=== PATIENT | female | born 1950 | race Caucasian/White ===

== ENCOUNTER 2016-06-20 14:35 | Emergency (ER) | payer OTHER, MEDICARE ==
[2016-06-20 14:55] VITALS: O2SAT 94
[2016-06-20] MEDS ORDERED: HYDROCODONE/APAP 5/325 TAB PO ONE (15:11)
--- NOTE | 2016-06-20 15:15 | EDPHY ---
H & P Time Seen by Provider: 06/20/16 15:02 HPI/ROS: CHIEF COMPLAINT: Right shoulder pain HISTORY OF PRESENT ILLNESS: Patient was going down the steps of her deck is sideways because she was reaching for a rug when she tripped and landed with her right shoulder in a planter. Her forehead at the dirt, she did not lose consciousness. She presents with right shoulder and upper arm pain which is moderate at rest and severe with movement. Does not radiate. Started just after the fall. No other injuries. REVIEW OF SYSTEMS: Eye: no change in vision ENT: no sore throat Cardiac: no chest pain or syncope Pulmonary: no cough or SOB Abdomen: no vomiting, diarrhea, abdominal pain Musculoskeletal: no back pain, minimal neck soreness Skin: no rash Neuro: very mild diffuse headache, no weakness or numbness extremities Constitutional: no fever : no urinary symptoms A comprehensive 10 point review of systems is otherwise negative aside from elements mentioned in the history of present illness. PAST MEDICAL HISTORY: Includes diabetes high cholesterol hypertension depression and GERD. Social history: General Appearance: Alert and conversant, cooperative. Eyes: No scleral icterus. ENT, Mouth: Normal mucous membranes. No scalp hematoma or laceration. No hemotympanum and no bruising on the mastoid. Respiratory: Normal respiratory effort, breath sounds equal, lungs are clear to auscultation. Cardiovascular: Regular rate and rhythm. Gastrointestinal: Abdomen is soft and non tender. Nontender over the liver. Neurological: Alert and oriented x3. Normally conversant. Face symmetric, normal movement and sensation in all extremities. Skin: Warm and dry, no rashes. Musculoskeletal: No cervical thoracic or lumbar midline spinal tenderness. Patient has no right clavicular tenderness. She has right upper humerus pain tenderness and swelling. Her right elbow and forearm wrist and hand have normal range of motion and are not tender. Normal motor sensory and vascular in the right hand. Psychiatric: Not agitated. Emergency Department course/MDM: Cervical spine cleared clinically. Oral Vicodin for right arm. X-rays ordered. Not anticoagulated, I think her risk for significant head injury including fracture or intracranial bleed or subdural or epidural is low. 1540: X-rays reviewed with the patient. Right shoulder and humerus x-ray personally interpreted shows minimally displaced humeral head fracture. Smoking Status: Never smoked Constitutional: Initial Vital Signs Temperature (C) 37.2 C 06/20/16 14:45 Heart Rate 74 06/20/16 14:45 Respiratory Rate 18 06/20/16 14:45 Blood Pressure 122/60 H 06/20/16 14:45 O2 Sat (%) 94 06/20/16 14:45 O2 Delivery Mode Room Air Allergies/Adverse Reactions: droperidol Allergy (Intermediate, Verified 06/20/16 14:50) hallucinate tetracycline Allergy (Intermediate, Verified 06/20/16 14:50) Hives Home Medications: Medication Instructions Recorded Aspirin [Aspirin 81mg (*)] 81 mg PO DAILY 06/20/16 FLUoxetine [PROzac] 20 mg PO 06/20/16 Hydrocodone/APAP 5/325 [[place] 1 - 2 tab PO Q4-6PRN PRN #19 tab 06/20/16 5/325] Lisinopril [Zestril 40 mg (*)] 40 mg PO 06/20/16 Metformin HCl [Metformin 1000 mg] 1,000 mg PO 06/20/16 Omeprazole 40 mg PO DAILY 06/20/16 Pregabalin [Lyrica 50mg (*)] 50 mg PO BID 06/20/16 SIMVASTATIN 10 mg PO 06/20/16 Zolpidem Tartrate [Ambien 5MG (*)] 5 mg PO HS 06/20/16 Medical Decision Making - Data Points Medications Given: Discontinued Medications Hydrocodone Bitart/Acetaminophen ([place] 5/325) 1 tab PO EDNOW ONE Stop: 06/20/16 15:12 Last Admin: 06/20/16 15:25 Dose: 1 tab Departure - Departure Disposition: Home, Routine, Self-Care Clinical Impression: Fracture of humeral head, right, closed Qualifiers: Encounter type: initial encounter Qualified Code(s): S42.291A - Other displaced fracture of upper end of right humerus, initial encounter for closed fracture Condition: Good Instructions: Arm Fracture in Adults (ED), Head Injury (ED) Additional Instructions: Sling with limited use of right arm until approved by follow up orthopedist. Referrals: Beth Arreguin MD [Primary Care Provider] - As per Instructions Radha Dinero MD [Medical Doctor] - As per Instructions (this week; or tho followup) Prescriptions: Hydrocodone/APAP 5/325 [[place] 5/325] 1 - 2 tab PO Q4-6PRN PRN #19 tab PRN Reason: For Pain
[2016-06-20 16:11] VITALS: BP 120/63; PULSE 73; RESP 15; TEMP 98.8
== END 2016-06-20 16:12 | disposition home or self-care (01) ==
DX: S42.291A Other displaced fracture of upper end of right humerus, initial encounter for closed fracture (principal); E11.9 Type 2 diabetes mellitus without complications; I10 Essential (primary) hypertension; Z79.82 Long term (current) use of aspirin; Z79.84 Long term (current) use of oral hypoglycemic drugs; W18.49XA Other slipping, tripping and stumbling without falling, initial encounter
CPT/HCPCS: 73030; 73060; 99283; A4565

== ENCOUNTER → 2017-07-28 | Outpatient (CLI) | payer OTHER, MEDICARE | LOC: FIMAGING 13:52 | PROVIDERS: ATTEND Family Medicine | DX: Z12.31 Encounter for screening mammogram for malignant neoplasm of breast (principal) ==

== ENCOUNTER → 2017-08-19 | Outpatient (CLI) | payer OTHER, MEDICARE | LOC: FIMAGING 10:23 | PROVIDERS: ATTEND Family Medicine | DX: Z13.820 Encounter for screening for osteoporosis (principal); M85.89 Other specified disorders of bone density and structure, multiple sites; R73.9 Hyperglycemia, unspecified; Z78.0 Asymptomatic menopausal state; Z87.81 Personal history of (healed) traumatic fracture; Z79.899 Other long term (current) drug therapy ==

== ENCOUNTER 2017-09-04 19:56 | Inpatient (IN) | payer OTHER, MEDICARE ==
--- NOTE | 2017-09-04 20:03 | EDPHY ---
H & P Time Seen by Provider: 09/04/17 20:00 HPI/ROS: CHIEF COMPLAINT: Left hip pain HISTORY OF PRESENT ILLNESS: 67-year-old female arrives via ambulance complaining of left buttock and left hip pain after mechanical fall. She has been unable to bear weight. She describes sitting in her recliner, got up, her foot caught in the foot component of her recliner she fell onto her left side. This was a mechanical non syncopal episode. No head injury. No alcohol or drug use. No chest pain or trauma. Last oral intake 5:30 p.m. today REVIEW OF SYSTEMS: A ten point review of systems was performed and is negative with the exception of the items mentioned in the HPI PAST MEDICAL/SURGICAL HISTORY: Left knee arthroplasty. no anticoagulant use, [id number] diabetes. Meniere's disease. SOCIAL HISTORY: denies alcohol use at time of incident PHYSICAL EXAM 1) GENERAL: Well-developed, well-nourished, alert and oriented. Appears uncomfortable Answering questions appropriately. 2) HEAD: Normocephalic, atraumatic 3) HEENT: Pupils equal, round, reactive to light bilaterally. Negative Horners. Nasopharynx, oropharynx, clear. No deformity or angulation of nose. No septal hematoma. No rhinorrhea. No oral trauma. Ears bilaterally with normal tympanic membranes. No hemotympanum. No fluid or blood in the external auditory canal. No raccoon eyes. No Carmona sign. Teeth are normally aligned with no gross malocclusion, TMJ bilaterally nontender, facial bones nontender including the zygomatic arch, maxilla mandible. 4) NECK: No cervical collar is on. Posterior cervical spine is nontender, no stepoff, no effusion. Full range of motion which does not elicit any midline cervical spine pain, no posterior midline tenderness, no step-off. 5) LUNGS: Clear to auscultation bilaterally, no wheezes, no rhonchi, no retractions. No obvious signs of trauma. No chest wall pain. No flaring, no grunting. Moving symmetrically. No crepitus. 6) HEART: [Regular rate and rhythm, 7) ABDOMEN: No guarding, no rebound, no focal tenderness, no peritoneal signs, no signs of trauma, no ecchymosis 8) MUSCULOSKELETAL: Left lower extremity: No shortening no malrotation. Tender to palpation greater trochanteric region, tender to palpation left buttock. Intact skin. Soft compartments. DP PT pulses present and brisk. Remainder of the femur and remainder of left lower extremity are nontender. Moving all extremities, no focal areas of tenderness, no obvious trauma. 9) BACK: Patient logrolled while holding inline traction.No midline vertebral tenderness, no fluctuance, no step-off, no obvious trauma, no visual or palpable abnormality. 10) SKIN: No laceration. No abrasion DIFFERENTIAL DIAGNOSIS: In no particular order including but not limited to fracture, sprain, strain, dislocation - Medical/Surgical History Hx Diabetes: Yes Other PMH: diabetic type 2. cho;estero;. HTN. depression. GERD - Social History Smoking Status: Never smoked Constitutional: Initial Vital Signs Temperature (C) 36.6 C 09/04/17 20:05 Heart Rate 86 09/04/17 20:05 Respiratory Rate 18 09/04/17 20:05 Blood Pressure 83/49 L 09/04/17 20:05 O2 Sat (%) 94 09/04/17 20:05 O2 Delivery Mode Room Air Allergies/Adverse Reactions: droperidol Allergy (Intermediate, Verified 09/04/17 20:05) hallucinate tetracycline Allergy (Intermediate, Verified 09/04/17 20:05) Hives Home Medications: Medication Instructions Recorded Hydrocodone/APAP 5/325 [[place] 1 - 2 tab PO Q4-6PRN PRN #19 tab 06/20/16 5/325] Alendronate Sodium [Fosamax 70 MG 70 mg PO SA@0700 09/04/17 (*)] Cholecalciferol Vit D3 [Vitamin D3 1,000 units PO DAILY 09/04/17 (*)] DULoxetine [Cymbalta 30 MG (*)] 30 mg PO BID 09/04/17 Hydroxyurea [Hydrea 500 mg (*)] 500 mg PO MOTH@,09/04/17 Hydroxyurea [Hydrea 500 mg (*)] 500 mg PO SUTUWEFRSA@,,09/04/17 Lisinopril [Zestril 5 mg (*)] 5 mg PO DAILY 09/04/17 Metformin HCl [Metformin 1000 mg] 1,000 mg PO BIDMEAL 09/04/17 Pantoprazole Sodium [Protonix 40mg 40 mg PO DAILY 09/04/17 (*)] Pregabalin [Lyrica 150mg (*)] 150 mg PO BID 09/04/17 Quetiapine Fumarate 25 mg PO HS 09/04/17 Simvastatin [Zocor] 20 mg PO 1800 09/04/17 Triamterene/Hctz 75/50 [Maxzide 0.5 tab PO DAILY 09/04/17 75-50 mg Tab (*)] Vitamin B Complex [Vitamin B 1 each PO DAILY 09/04/17 Complex (OTC)] Medical Decision Making - Diagnostics Imaging Results: Imaging Impressions Hip X-Ray 09/04/17 19:58 Impression: Minimally-displaced and angulated intertrochanteric fracture left hip. Chest X-Ray 09/04/17 20:27 IMPRESSION: No evidence for acute cardiopulmonary abnormality. ED Course/Re-evaluation: 8:20 p.m.: Dr. Brian Rodas in the ER to see patient for the patient's left femoral neck fracture. No other injury. This was a mechanical incident. He will plan on surgical intervention tomorrow, admit to hospitalist. Patient last ate at 5:30 p.m. Tonight. I saw this patient independently based on established practice protocols. Care of patient under supervision of secondary supervising physician Dr Tonny Carmona with whom I discussed case. 9:01 p.m.: Consult with hospitalist Dr. Correa who will admit patient - Data Points Laboratory Results: Laboratory Results 09/04/17 20:45 09/04/17 20:45 09/04/17 09/04/17 09/04/17 20:45 20:45 20:45 WBC 12.53 10^3/uL H 10^3/uL (3.80-9.50) RBC 3.83 10^6/uL L 10^6/uL (4.18-5.33) Hgb 14.4 g/dL g/dL (12.6-16.3) Hct 42.8 % % (38.0-47.0) MCV 111.7 fL H fL (81.5-99.8) MCH 37.6 pg H pg (27.9-34.1) MCHC 33.6 g/dL g/dL (32.4-36.7) RDW 15.8 % H % (11.5-15.2) Plt Count 627 10^3/uL H 10^3/uL (150-400) MPV 10.0 fL fL (8.7-11.7) Neut % (Auto) 59.6 % % (39.3-74.2) Lymph % (Auto) 20.3 % % (15.0-45.0) [place] % (Auto) 17.2 % H % (4.5-13.0) Eos % (Auto) 1.4 % % (0.6-7.6) Baso % (Auto) 0.6 % % (0.3-1.7) Nucleat RBC Rel Count 0.0 % % (0.0-0.2) Absolute Neuts (auto) 7.47 10^3/uL H 10^3/uL (1.70-6.50) Absolute Lymphs (auto) 2.54 10^3/uL 10^3/uL (1.00-3.00) Absolute Monos (auto) 2.16 10^3/uL H 10^3/uL (0.30-0.80) Absolute Eos (auto) 0.18 10^3/uL 10^3/uL (0.03-0.40) Absolute Basos (auto) 0.08 10^3/uL 10^3/uL (0.02-0.10) Absolute Nucleated RBC 0.00 10^3/uL 10^3/uL (0-0.01) Immature Gran % 0.9 % % (0.0-1.1) Immature Gran # 0.11 10^3/uL H 10^3/uL (0.00-0.10) RBC/WBC/PLT Morphology TNP Platelet Estimate INCREASED H (ADEQ) Oval Macrocytes 1+ H Smear Review By Pending PT 12.8 SEC SEC (12.0-15.0) INR 0.94 (0.83-1.16) APTT 28.3 SEC SEC (23.0-38.0) Sodium 137 mEq/L mEq/L (135-145) Potassium 4.8 mEq/L mEq/L (3.3-5.0) Chloride 103 mEq/L mEq/L (97-110) Carbon Dioxide 27 mEq/l mEq/l (22-31) Anion Gap 7 mEq/L L mEq/L (8-16) BUN 21 mg/dL mg/dL (7-23) Creatinine 0.6 mg/dL mg/dL (0.6-1.0) Estimated GFR > 60 Glucose 129 mg/dL H mg/dL (70-100) Calcium 9.4 mg/dL mg/dL (8.5-10.4) Specimen Hemolysis 118 Medications Given: Hydromorphone HCl (Dilaudid) 2 mg PO Q4HRS PRN PRN Reason: Pain, Severe Able to Take PO Stop: 09/14/17 22:10 Last Admin: 09/04/17 23:39 Dose: 2 mg Quetiapine Fumarate (Seroquel) 25 mg PO HS PRN PRN Reason: Insomnia Stop: 03/04/18 20:59 Last Admin: 09/05/17 01:12 Dose: 25 mg Discontinued Medications Fentanyl (Sublimaze) 100 mcg IVP EDNOW ONE Stop: 09/04/17 20:27 Last Admin: 09/04/17 20:28 Dose: 100 mcg Fentanyl (Sublimaze) 100 mcg IVP EDNOW ONE Stop: 09/04/17 20:27 Last Admin: 09/04/17 20:32 Dose: Not Given Hydromorphone HCl (Dilaudid) 1 mg IVP Q4HRS PRN PRN Reason: Pain, Severe Unable to Take PO Stop: 09/14/17 21:51 Last Admin: 09/04/17 21:54 Dose: 1 mg Sodium Chloride (Ns) 1,000 mls @ 0 mls/hr IV ONCE ONE PRN Reason: Wide Open Stop: 09/04/17 20:27 Last Admin: 09/04/17 20:45 Dose: 1,000 mls Departure - Departure [facility] Clinical Impression: Fracture of femoral neck, left Qualifiers: Encounter type: initial encounter Fracture type: closed Qualified Code(s): S72.002A - Fracture of unspecified part of neck of left femur, initial encounter for closed fracture Condition: Fair
[2017-09-04] MEDS ORDERED: fentaNYL 100 MCG/2 ML INJ IVP ONE ×2 (20:26)
[2017-09-04] MEDS ORDERED: NS 1,000 ML IV ONE (20:26)
--- NOTE | 2017-09-04 20:59 | CPEKG ---
Heart Rate: 66 RR Interval: 909 P-R Interval: 140 QRSD Interval: 92 QT Interval: 420 QTC Interval: 441 P [place]: 67 QRS [place]: -74 T Wave [place]: 68 EKG Severity - ABNORMAL ECG - EKG Impression: SINUS RHYTHM EKG Impression: LEFT ANTERIOR FASCICULAR BLOCK EKG Impression: BORDERLINE T ABNORMALITIES, ANT-LAT LEADS Electronically Signed By: Tonny Carmona 04-Sep-2017 21:00:44
[2017-09-04 21:06] LABS: PLATELET COUNT 627 10^3/uL (150-400)
[2017-09-04 21:14] LABS: INR 0.94 (0.83-1.16); PROTIME(PATIENT) 12.8 SEC (12.0-15.0)
[2017-09-04] MEDS ORDERED: HYDROmorphONE/DILAUDID 1 MG/ML INJ IVP PRN (21:52)
[2017-09-04] MEDS ORDERED: HYDROmorphONE/DILAUDID 1 MG/ML INJ ONE (21:53)
[2017-09-04] MEDS ORDERED: ONDANSETRON DISINTEGRATING 4 MG TAB PO PRN (22:11)
[2017-09-04] MEDS ORDERED: ONDANSETRON 4 MG/2 ML VIAL IVP PRN (22:11)
[2017-09-04] MEDS ORDERED: D50W 25 GM/50 ML SYR IVP PRN (22:15)
[2017-09-04] MEDS ORDERED: QUEtiapine FUMARATE 25 MG TAB PO PRN (23:14)
--- NOTE | 2017-09-04 23:35 | PDGENHP ---
History and Physical - Chief Complaint Fall - History of Present Illness 67 yo F w/ hx of osteoporosis, unsteady gait, and multiple prior falls and fractures presents after a fall. The patient tells me she tripped on a new recliner and fell down. Immediately after the fall she experienced L hip pain; she denies LOC. Once in the ED XR revealed L hip fracture. She is particularly upset as she has recently finished rehabilitation for a recent patellar fracture requiring surgery. Of note, she recently started Fosamax for treatment of osteoporosis. At the time of my evaluation patient is comfortable but in pain with movement. She denies any additional symptoms. Case discussed with Dr. Correa, previous records reviewed. History Information - Allergies/Home Medication List Allergies/Adverse Reactions: droperidol Allergy (Intermediate, Verified 09/04/17 20:05) hallucinate tetracycline Allergy (Intermediate, Verified 09/04/17 20:05) Hives Home Medications: Alendronate Sodium [Fosamax 70 MG (*)] 70 mg PO SA@0700 09/04/17 [Last Taken Unknown] Cholecalciferol Vit D3 [Vitamin D3 (*)] 1,000 units PO DAILY 09/04/17 [Last Taken Unknown] DULoxetine [Cymbalta 30 MG (*)] 30 mg PO BID 09/04/17 [Last Taken 09/04/17] Hydroxyurea [Hydrea 500 mg (*)] 500 mg PO MOTH@09/04/17 [Last Taken Unknown] Hydroxyurea [Hydrea 500 mg (*)] 500 mg PO SUTUWEFRSA@,09/04/17 [Last Taken Unknown] Lisinopril [Zestril 5 mg (*)] 5 mg PO DAILY 09/04/17 [Last Taken Unknown] Metformin HCl [Metformin 1000 mg] 1,000 mg PO BIDMEAL 09/04/17 [Last Taken Unknown] Pantoprazole Sodium [Protonix 40mg (*)] 40 mg PO DAILY 09/04/17 [Last Taken Unknown] Pregabalin [Lyrica 150mg (*)] 150 mg PO BID 09/04/17 [Last Taken Unknown] Quetiapine Fumarate 25 mg PO HS 09/04/17 [Last Taken 09/03/17] Simvastatin [Zocor] 20 mg PO 1800 09/04/17 [Last Taken Unknown] Triamterene/Hctz 75/50 [Maxzide 75-50 mg Tab (*)] 0.5 tab PO DAILY 09/04/17 [ Last Taken Unknown] Vitamin B Complex [Vitamin B Complex (OTC)] 1 each PO DAILY 09/04/17 [Last Taken Unknown] I have personally reviewed and updated: family history, medical history - Past Medical History diabetes type 2, hypertension, osteoporosis - Surgical History Additional surgical history: Vestibular surgery. Patellar surgery. Shoulder surgery - Family History Additional family history: Denies family hx of fractures or osteoporosis - Social History Smoking Status: Never smoked Review of Systems Review of Systems: ROS: 10pt was reviewed & negative except for what was stated in HPI & below Physical Exam Physical Exam: Temp Pulse Resp BP Pulse Ox 36.6 C 87 18 148/78 H 94 09/04/17 20:05 09/04/17 22:22 09/04/17 22:22 09/04/17 22:22 09/04/17 22:22 O2 (L/minute) 4 Constitutional: appears nourished, uncomfortable Eyes: PERRL, EOMI Ears, Nose, Mouth, Throat: moist mucous membranes, no oral mucosal ulcers Cardiovascular: regular rate and rhythym, no murmur, rub, or gallop Respiratory: no respiratory distress, clear to auscultation Gastrointestinal: normoactive bowel sounds, soft, non-tender abdomen Skin: warm, normal color Musculoskeletal: other (Pain w/ L hip motion), No no joint effusions Neurologic: AAOx3, CN II-XII Intact Psychiatric: interacting appropriately, not anxious Lab Data & Imaging Review 09/04/17 20:45 09/04/17 20:45 WBC 12.53 10^3/uL (3.80-9.50) H 09/04/17 20:45 RBC 3.83 10^6/uL (4.18-5.33) L 09/04/17 20:45 Hgb 14.4 g/dL (12.6-16.3) 09/04/17 20:45 Hct 42.8 % (38.0-47.0) 09/04/17 20:45 MCV 111.7 fL (81.5-99.8) H 09/04/17 20:45 MCH 37.6 pg (27.9-34.1) H 09/04/17 20:45 MCHC 33.6 g/dL (32.4-36.7) 09/04/17 20:45 RDW 15.8 % (11.5-15.2) H 09/04/17 20:45 Plt Count 627 10^3/uL (150-400) H 09/04/17 20:45 MPV 10.0 fL (8.7-11.7) 09/04/17 20:45 Neut % (Auto) 59.6 % (39.3-74.2) 09/04/17 20:45 Lymph % (Auto) 20.3 % (15.0-45.0) 09/04/17 20:45 [place] % (Auto) 17.2 % (4.5-13.0) H 09/04/17 20:45 Eos % (Auto) 1.4 % (0.6-7.6) 09/04/17 20:45 Baso % (Auto) 0.6 % (0.3-1.7) 09/04/17 20:45 Nucleat RBC Rel Count 0.0 % (0.0-0.2) 09/04/17 20:45 Absolute Neuts (auto) 7.47 10^3/uL (1.70-6.50) H 09/04/17 20:45 Absolute Lymphs (auto) 2.54 10^3/uL (1.00-3.00) 09/04/17 20:45 Absolute Monos (auto) 2.16 10^3/uL (0.30-0.80) H 09/04/17 20:45 Absolute Eos (auto) 0.18 10^3/uL (0.03-0.40) 09/04/17 20:45 Absolute Basos (auto) 0.08 10^3/uL (0.02-0.10) 09/04/17 20:45 Absolute Nucleated RBC 0.00 10^3/uL (0-0.01) 09/04/17 20:45 Immature Gran % 0.9 % (0.0-1.1) 09/04/17 20:45 Immature Gran # 0.11 10^3/uL (0.00-0.10) H 09/04/17 20:45 RBC/WBC/PLT Morphology TNP 09/04/17 20:45 Platelet Estimate INCREASED (ADEQ) H 09/04/17 20:45 Oval Macrocytes 1+ H 09/04/17 20:45 PT 12.8 SEC (12.0-15.0) 09/04/17 20:45 INR 0.94 (0.83-1.16) 09/04/17 20:45 APTT 28.3 SEC (23.0-38.0) 09/04/17 20:45 Sodium 137 mEq/L (135-145) 09/04/17 20:45 Potassium 4.8 mEq/L (3.3-5.0) 09/04/17 20:45 Chloride 103 mEq/L (97-110) 09/04/17 20:45 Carbon Dioxide 27 mEq/l (22-31) 09/04/17 20:45 Anion Gap 7 mEq/L (8-16) L 09/04/17 20:45 BUN 21 mg/dL (7-23) 09/04/17 20:45 Creatinine 0.6 mg/dL (0.6-1.0) 09/04/17 20:45 Estimated GFR > 60 09/04/17 20:45 Glucose 129 mg/dL (70-100) H 09/04/17 20:45 Calcium 9.4 mg/dL (8.5-10.4) 09/04/17 20:45 Specimen Hemolysis 118 09/04/17 20:45 Imaging Review: Imaging Impressions Hip X-Ray 09/04/17 19:58 Impression: Minimally-displaced and angulated intertrochanteric fracture left hip. Chest X-Ray 09/04/17 20:27 IMPRESSION: No evidence for acute cardiopulmonary abnormality. Visualized and Interpreted Chest x-ray results: Yes Chest X-Ray results: no infiltrate Assessment & Plan Assessment: 67 yo F w/ hx T2DM, HTN, osteoporosis, and multiple falls p/w L hip fracture after a fall. Plan: 1. L hip fracture - Minimally-displaced and angulated intertrochanteric fracture left hip; suffered from mechanical fall. This qualifies as pathologic fracture noting it occurred from standing height. - Orthopedic surgery consulted, appreciate assistance - Maintain NPO for surgical correction - Continue bisphosphonate at discharge 2. T2DM - On metformin as outpatient; will manage BG here with SSI. - SSI lispro standard protocol - BG ACHS; D50 IV PRN for hypoglycemia 3. HTN - Restart home meds after surgery as indicated 4. Unsteady gait - Patient tells me she has history of Meniere's disease and she underwent a vestibulectomy for this many years ago. She has suffered multiple falls resulting in serious injuries (shoulder, patella, hip). 5. Insomnia - Seroquel PRN 6. Elevated platelet count - On Hydroxyurea for this. Diet - NPO Code - Full Ppx - SCDs Dispo - Admit under inpatient status noting need for surgical correction, pain control, and therapy evaluation.
[2017-09-04] MEDS: HYDROmorphONE/DILAUDID 2 MG TAB PO PRN (23:39)
[2017-09-05 05:48] LABS: PLATELET COUNT 506 10^3/uL (150-400)
[2017-09-05] MEDS: HYDROmorphONE/DILAUDID 1 MG/ML INJ IVP PRN ×5 (06:52→12:46)
[2017-09-05] MEDS: HYDROmorphONE/DILAUDID 2 MG TAB PO PRN ×2 (08:08→21:23)
[2017-09-05] MEDS: INSULIN LISPRO 100 UNIT/ML SC SCH ×3 (08:09→17:32)
--- NOTE | 2017-09-05 08:59 | PDMN ---
Medical Necessity Medical necessity: est los>2mn for L hip fx r/t mechanical fall; admit for ortho consult and surgical repair; comorbid Meniere's w/unsteady gait, hx multiple falls w/serious injuries, HTN, DM2; per order and H&P 09/04/17
[2017-09-05] MEDS ORDERED: CLINDAMYCIN 900 MG/DEXTROSE/50 ML BAG IV ONE (10:11)
[2017-09-05] MEDS ORDERED: CLINDAMYCIN 900 MG/DEXTROSE 50 ML IV ONE (10:16)
[2017-09-05] MEDS ORDERED: MIDAZOLAM 2 MG/2 ML VIAL IVP ONE (10:26)
--- NOTE | 2017-09-05 10:27 | PDANEPAE ---
ANE History of Present Illness left hip fracture ANE Past Medical History - Pulmonary History Hx Oxygen in Use at Home: No Hx Sleep Apnea: Yes Sleep Apnea Screening Result - Last Documented: Negative - Endocrine History Hx Diabetes: Yes ANE Review of Systems Review of Systems: ANE Patient History - Allergies Allergies/Adverse Reactions: droperidol Allergy (Intermediate, Verified 09/04/17 20:05) hallucinate tetracycline Allergy (Intermediate, Verified 09/04/17 20:05) Hives - Home Medications Home Medications: Alendronate Sodium [Fosamax 70 MG (*)] 70 mg PO SA@0700 09/04/17 [Last Taken Unknown] Cholecalciferol Vit D3 [Vitamin D3 (*)] 1,000 units PO DAILY 09/04/17 [Last Taken Unknown] DULoxetine [Cymbalta 30 MG (*)] 30 mg PO BID 09/04/17 [Last Taken 09/04/17] Hydroxyurea [Hydrea 500 mg (*)] 500 mg PO MOTH@09/04/17 [Last Taken Unknown] Hydroxyurea [Hydrea 500 mg (*)] 500 mg PO SUTUWEFRSA@,,09/04/17 [Last Taken Unknown] Lisinopril [Zestril 5 mg (*)] 5 mg PO DAILY 09/04/17 [Last Taken Unknown] Metformin HCl [Metformin 1000 mg] 1,000 mg PO BIDMEAL 09/04/17 [Last Taken Unknown] Pantoprazole Sodium [Protonix 40mg (*)] 40 mg PO DAILY 09/04/17 [Last Taken Unknown] Pregabalin [Lyrica 150mg (*)] 150 mg PO BID 09/04/17 [Last Taken Unknown] Quetiapine Fumarate 25 mg PO HS 09/04/17 [Last Taken 09/03/17] Simvastatin [Zocor] 20 mg PO 1800 09/04/17 [Last Taken Unknown] Triamterene/Hctz 75/50 [Maxzide 75-50 mg Tab (*)] 0.5 tab PO DAILY 09/04/17 [ Last Taken Unknown] Vitamin B Complex [Vitamin B Complex (OTC)] 1 each PO DAILY 09/04/17 [Last Taken Unknown] - NPO status NPO Since - Liquids (Date): 09/05/17 NPO Since - Liquids (Time): 00:00 NPO Since - Solids (Date): 09/05/17 NPO Since - Solids (Time): 00:00 - Smoking Hx Smoking Status: Never smoked ANE Labs/Vital Signs - Labs Result Diagrams: 09/05/17 04:45 09/05/17 04:45 - Vital Signs Blood Pressure: 118/58 Heart Rate: 90 Respiratory Rate: 16 O2 Sat (%): 99 Height: 162.56 cm Weight: 86.183 kg ANE Physical Exam - Airway Neck exam: FROM Mallampati Score: Class 1 Mouth exam: normal dental/mouth exam - Pulmonary Pulmonary: no respiratory distress - Cardiovascular Cardiovascular: regular rate and rhythym - ASA Status ASA Status: III ANE Anesthesia Plan Anesthesia Plan: general endotracheal anesthesia
[2017-09-05] MEDS ORDERED: PROPOFOL 200 MG/20 ML VIAL ONE (10:32)
[2017-09-05] MEDS ORDERED: LIDOCAINE 2% 5 ML SDV ONE (10:32)
[2017-09-05] MEDS ORDERED: fentaNYL 100 MCG/2 ML INJ ONE ×3 (10:32→12:49)
[2017-09-05] MEDS ORDERED: ROCURONIUM 50 MG/5 ML VIAL ONE (10:34)
[2017-09-05] MEDS ORDERED: DEXAMETHASONE 4 MG/ML VIAL ONE (10:34)
[2017-09-05] MEDS ORDERED: ONDANSETRON 4 MG/2 ML VIAL ONE (10:34)
[2017-09-05] MEDS ORDERED: BUPIVACAINE/EPI 0.5% 30 ML SDV ONE (10:40)
[2017-09-05] MEDS ORDERED: MIDAZOLAM 2 MG/2 ML VIAL ONE (10:45)
[2017-09-05] MEDS ORDERED: POLYMYXIN B SULFATE 500,000 UNIT/10 ML SYR IRR ONE (10:47)
[2017-09-05] MEDS ORDERED: BACITRACIN 50,000 UNITS/10 ML SYR IRR ONE (10:47)
[2017-09-05] MEDS ORDERED: PHENYLEPHRINE HCL 100 MCG/ML SYR ONE (10:59)
--- NOTE | 2017-09-05 11:16 | ASMTCMCOM ---
CM Note CM Note Notes: Chart reviewed.Left femoral neck fracture. To OR today. Needs TBD at this time. CM to follow. Plan: TBD Date Signed: 09/05/2017 11:15 AM Electronically Signed By:Sugar Daugherty RN
[2017-09-05] MEDS ORDERED: NALOXONE HCL 0.4 MG/ML INJ IVP PRN (11:23)
[2017-09-05] MEDS ORDERED: PROMETHAZINE HCL 25 MG/ML INJ IVP PRN (11:23)
[2017-09-05] MEDS ORDERED: ONDANSETRON 4 MG/2 ML VIAL IVP PRN (11:23)
[2017-09-05] MEDS ORDERED: HYDROCODONE/APAP 5/325 TAB PO PRN (11:23)
[2017-09-05] MEDS ORDERED: ePHEDrine SULFATE 25 MG/5 ML SYR ONE (11:48)
[2017-09-05] MEDS ORDERED: ESMOLOL HCL 100 MG/10 ML VIAL IV ONE (12:01)
--- NOTE | 2017-09-05 12:10 | POSTOPPROG ---
Post Op Note Date of Operation: 09/05/17 Surgeon: Brian Rodas Grape Crusher: kai nguyen Anesthesia: GET(General Endotracheal) Pre-op Diagnosis: Left intertrochanteric fx Post-op Diagnosis: same Procedure: short TFN lt Inf/Abcess present in the surg proc area at time of surgery?: No EBL: 100-500 (300) Complications: none
--- NOTE | 2017-09-05 12:14 | POSTANESTH ---
Post Anesthetic Evaluation Cardiovascular Status: Normal, Stable Respiratory Status: Normal, Stable Level of Consciousness/Mental Status: Can Participate in Eval Pain Control: Adequate, Prn Tx Ordered Nausea/Vomiting Control: Adequate, Prn Tx Ordered Complications Possibly Related to Anesthesia: None Noted
[2017-09-05] MEDS ORDERED: metFORMIN HCL 500 MG TAB PO SCH (12:15)
[2017-09-05] MEDS ORDERED: HYDROmorphONE/DILAUDID 1 MG/ML INJ ONE ×2 (12:19→12:45)
--- NOTE | 2017-09-05 12:31 | GOP ---
[f rep st] OPERATIVE REPORT DATE OF OPERATION: 09/05/2017 SURGEON: Brian Rodas MD RIP SAWYER: Yuniel Jiménez CST. ANESTHESIA: General. PREOPERATIVE DIAGNOSIS: Left hip intertrochanteric fracture, closed. POSTOPERATIVE DIAGNOSIS: Left hip intertrochanteric fracture, closed. PROCEDURE PERFORMED: Short titanium trochanteric fixation nail left hip. FINDINGS: INDICATIONS: The patient is a 67-year-old female, who fell at home over her recliner yesterday cheri quintero and sustained intertrochanteric fracture. She had eaten shortly before arriving to the ER. Omar ion was made to admit her to the hospital overnight, proceed with surgery in the morning. DESCRIPTION OF PROCEDURE: After appropriate informed consent was obtained, patient was taken to the operating room, placed supine on the operating table. Time-out was performed. Patient was identifie d, correct site was identified, matched to the radiographs that were available in the room. She rece ived 900 mg of clindamycin due to her tetracycline allergy. She was then positioned on the fracture table. All bony prominences well padded. Left leg was placed in the traction boot. Left hip was st erilely prepped. Prior to that, I had gently applied traction and slight internal rotation and reduc ed the fracture. This was confirmed with AP and lateral fluoroscopic images. Following sterile prep , hip was draped usual fashion. Using our starting pin, we obtained our starting position on the tip of the greater trochanter and dr illed into the femoral canal. Using our starting reamer, we entered the femoral canal. Given the si ze of her shaft on the x-ray, I chose an 11 mm diameter nail. This was hooked up to the jig and sd ed into place. It was confirmed position-gandara on AP and lateral fluoroscopic images. Then, using ou r external jig, we placed our spiral blade plate into the head and 1 distal locking screw. Final chad ging showed satisfactory reduction of the fracture. Good positioning of the hardware. All instrumentation was removed. Wound was irrigated. Bleeding was controlled with the electrocaute ry and the Aquamantys device. The skin was closed with 2-0 Vicryl and markos. I instilled 30 cc of 0.5% Marcaine with epinephrine in the incision. Sterile dressing was applied. The patient was awak ened from anesthesia, transferred back to her hospital bed, taken to recovery room in satisfactory co ndition. There were no immediate intraoperative complications. Yuniel Jiménez's assistance was required throughout the entire case. IMPLANTS USED: Synthes 11 mm short TFN nail. COMPLICATIONS: None. DRAINS: None. /[id number]/MODL
[2017-09-05] MEDS: fentaNYL 100 MCG/2 ML INJ IVP PRN ×2 (12:51→13:07)
[2017-09-05] MEDS ORDERED: PROMETHAZINE HCL 25 MG/ML INJ ONE (13:14)
--- NOTE | 2017-09-05 13:55 | HOSPPROG ---
Hospitalist Progress Note Assessment/Plan: 67 yo F w/ hx T2DM, HTN, osteoporosis, and multiple falls p/w L hip fracture after a fall. First encounter, chart reviewed. Plan: 1. L hip fracture -to OR today - Minimally-displaced and angulated intertrochanteric fracture left hip; - suffered from mechanical fall. This qualifies as pathologic fracture noting it occurred from standing height. - Orthopedic surgery consulted, appreciate assistance - Continue bisphosphonate at discharge 2. T2DM - On metformin as outpatient; will manage BG here with SSI. - SSI lispro standard protocol - BG ACHS; D50 IV PRN for hypoglycemia 3. HTN - Restart home meds after surgery as indicated 4. Unsteady gait - history of Meniere's disease and she underwent a vestibulectomy for this many years ago. -She has suffered multiple falls resulting in serious injuries (shoulder, patella, hip). 5. Insomnia - Seroquel PRN 6. Elevated platelet count - On Hydroxyurea for this. 7. Tachy -unclear etiol -order ekg -check H/H 8.Fever -postop- -follow 9.Hypotension -postop -stable -consider bolus if needed -check H/H Diet - NPO Code - Full Ppx - SCDs Dispo - change to inpt status will likely require SNF Subjective: Sleepy. No pain. Minimal interaction. Objective: Vital Signs Temp Pulse Resp BP Pulse Ox 36.8 C 90 12 101/57 L 96 09/05/17 12:08 09/05/17 10:27 09/05/17 13:36 09/05/17 13:36 09/05/17 13:36 Laboratory Results 09/05/17 04:45 09/05/17 04:45 09/04/17 09/05/17 09/06/17 05:59 05:59 05:59 Intake Total 1150 Output Total 100 Balance 1050 PT 12.8 SEC (12.0-15.0) 09/04/17 20:45 INR 0.94 (0.83-1.16) 09/04/17 20:45 - Physical Exam Constitutional: no apparent distress, appears nourished, not in pain Eyes: PERRL, anicteric sclera, EOMI Ears, Nose, Mouth, Throat: moist mucous membranes, hearing normal, ears appear normal Cardiovascular: tachycardia, No JVD, No edema Respiratory: no respiratory distress, no rales or rhonchi, reduced air movement Gastrointestinal: No tenderness, No ascites, No guarding Skin: warm, normal color, No mottled Musculoskeletal: joint tenderness, pain with ROM, muscular tenderness, generalized weakness Psychiatric: interacting appropriately, not anxious, not encephalopathic, thought process linear ICD10 Worksheet Patient Problems: Problems Problem Status Onset Fracture of femoral neck, left Acute
[2017-09-05] MEDS: HYDROXYUREA 500 MG CAP PO SCH ×2 (14:22→21:10)
[2017-09-05] MEDS: D5W 1/2 NS W/ 20 KCl/L 1,000 ML IV SCH (14:32)
--- NOTE | 2017-09-05 14:59 | CPEKG ---
Heart Rate: 111 RR Interval: 541 P-R Interval: 148 QRSD Interval: 80 QT Interval: 312 QTC Interval: 424 P [place]: 60 QRS [place]: -77 T Wave [place]: 62 EKG Severity - ABNORMAL ECG - EKG Impression: SINUS TACHYCARDIA EKG Impression: LEFT ANTERIOR FASCICULAR BLOCK EKG Impression: CONSIDER RIGHT VENTRICULAR HYPERTROPHY Electronically Signed By: Escobar Hall 06-Sep-2017 10:49:02
[2017-09-05] MEDS: OXYCODONE/APAP 5/325 TAB PO PRN ×2 (17:33→21:11)
[2017-09-05] MEDS: CLINDAMYCIN 900 MG/DEXTROSE 50 ML IV SCH (17:33)
[2017-09-05] MEDS: metFORMIN HCL 500 MG TAB PO SCH (17:33)
[2017-09-05] MEDS: ATORVASTATIN CALCIUM 10 MG TAB PO SCH (17:33)
[2017-09-05] MEDS ORDERED: PREGABALIN 150 MG CAP PO SCH (21:00)
[2017-09-05] MEDS: QUEtiapine FUMARATE 25 MG TAB PO SCH (21:10)
[2017-09-05] MEDS: DULoxetine 30 MG CAP PO SCH (21:10)
[2017-09-06] MEDS ORDERED: NS 500 ML IV ONE (01:03)
--- NOTE | 2017-09-06 01:20 | CPEKG ---
Heart Rate: 125 RR Interval: 480 P-R Interval: 152 QRSD Interval: 82 QT Interval: 300 QTC Interval: 433 P [place]: 44 QRS [place]: -76 T Wave [place]: 52 EKG Severity - ABNORMAL ECG - EKG Impression: SINUS TACHYCARDIA EKG Impression: PROBABLE LEFT ATRIAL ABNORMALITY EKG Impression: LEFT ANTERIOR FASCICULAR BLOCK Electronically Signed By: Escobar Hall 06-Sep-2017 10:48:28
[2017-09-06] MEDS: HYDROmorphONE/DILAUDID 2 MG TAB PO PRN ×4 (01:29→19:20)
[2017-09-06] MEDS: CLINDAMYCIN 900 MG/DEXTROSE 50 ML IV SCH (02:05)
[2017-09-06] MEDS: D5W 1/2 NS W/ 20 KCl/L 1,000 ML IV SCH (02:05)
[2017-09-06] MEDS: HYDROXYUREA 500 MG CAP PO SCH ×2 (06:33→21:49)
[2017-09-06] MEDS: VITAMIN B COMPLEX 1 EA CAP/TAB PO SCH (07:52)
[2017-09-06] MEDS: metFORMIN HCL 500 MG TAB PO SCH ×2 (07:53→18:41)
[2017-09-06] MEDS: CHOLECALCIFEROL VIT D3 1,000 UNITS TAB PO SCH (07:54)
[2017-09-06] MEDS: RIVAROXABAN 10 MG TAB PO SCH (07:54)
[2017-09-06] MEDS: DULoxetine 30 MG CAP PO SCH ×2 (07:55→21:48)
[2017-09-06] MEDS: PANTOPRAZOLE SODIUM 40 MG TAB PO SCH (07:55)
[2017-09-06] MEDS: LISINOPRIL 5 MG TAB PO SCH (07:56)
[2017-09-06] MEDS: INSULIN LISPRO 100 UNIT/ML SC SCH ×3 (08:10→19:23)
[2017-09-06] MEDS: PREGABALIN 75 MG CAP PO SCH ×2 (08:29→21:48)
[2017-09-06] MEDS: ACETAMINOPHEN 325 MG TAB PO PRN ×2 (08:34→15:21)
[2017-09-06] MEDS: HYDROmorphONE/DILAUDID 1 MG/ML INJ IVP PRN (08:59)
[2017-09-06] MEDS ORDERED: LACTULOSE 20 GM/30 ML UDCUP PO PRN (09:04)
[2017-09-06] MEDS ORDERED: POLYETHYLENE GLYCOL 3350 17 GM PKT PO PRN (09:04)
[2017-09-06] MEDS ORDERED: BISACODYL 10 MG SUPP PR PRN (09:04)
[2017-09-06] MEDS ORDERED: MAGNESIUM HYDROXIDE 30 ML UDCUP PO PRN (09:04)
[2017-09-06] MEDS ORDERED: 1/2 NS 1,000 ML IV SCH (09:15)
[2017-09-06] MEDS: oxyCODONE IR 5 MG TAB PO PRN ×4 (09:57→21:49)
[2017-09-06] MEDS: TRIAMTERENE/HCTZ 75/50 1 EACH TAB PO SCH (10:00)
--- NOTE | 2017-09-06 12:54 | SOAPPROG ---
SOAP Progress Note Assessment/Plan: Assessment: Shantell is POD#1 s/p left femur short gamma nail. She is doing well with moderate pain controlled with Dilaudid. She has been up with physical therapy and has been toe touch weight bearing. PE: Dressing clean and dry NV intact LLE Calf is soft to compression and without pain Plan: We will have her continue with inpatient therapy with restriction of toe touch weight bearing. We will plan for discharge to a SNF or rehab facility depending on her ability to work with therapy. Continue Xarelto for 21 days post operatively 09/06/17 12:51 09/06/17 12:54 Objective: Vital Signs Temp Pulse Resp BP Pulse Ox 37.0 C 102 H 18 93/53 L 95 09/06/17 12:00 09/06/17 12:00 09/06/17 12:00 09/06/17 12:00 09/06/17 12:00 Laboratory Results 09/06/17 04:20 09/05/17 04:45 09/05/17 09/06/17 09/07/17 05:59 05:59 05:59 Intake Total 1150 6440 200 Output Total 100 2800 Balance 1050 3640 200 PT 12.8 SEC (12.0-15.0) 09/04/17 20:45 INR 0.94 (0.83-1.16) 09/04/17 20:45 ICD10 Worksheet Patient Problems: Problems Problem Status Onset Fracture of femoral neck, left Acute
--- NOTE | 2017-09-06 13:42 | HOSPPROG ---
Hospitalist Progress Note Assessment/Plan: 67 yo F w/ hx T2DM, HTN, osteoporosis, and multiple falls p/w L hip fracture after a fall. Plan: 1. L hip fracture - POD #1 - Minimally-displaced and angulated intertrochanteric fracture left hip; - suffered from mechanical fall. This qualifies as pathologic fracture noting it occurred from standing height. - Continue bisphosphonate at discharge 2. T2DM - On metformin as outpatient; will manage BG here with SSI. - SSI lispro standard protocol - BG ACHS; D50 IV PRN for hypoglycemia 3. HTN - Restart home meds after surgery as indicated 4. Unsteady gait - history of Meniere's disease and she underwent a vestibulectomy for this many years ago. -She has suffered multiple falls resulting in serious injuries (shoulder, patella, hip). 5. Insomnia - Seroquel PRN 6. Elevated platelet count - On Hydroxyurea for this. 7. Tachy -unclear etiol -ekg -h/h down, follow 8.Fever -postop -resolved 9.Hypotension -postop -stable -consider bolus if needed 10. ABL anemia -stable -postop -no signs of bleeding -follow 11. Back pain -chronic with acute flare -monitor Diet - DM Code - Full Ppx - SCDs and xeralto Dispo - change to inpt status will require SNF Subjective: Feeling ok. Still having significant pain. Anxious. Objective: Vital Signs Temp Pulse Resp BP Pulse Ox 37.0 C 102 H 18 93/53 L 95 09/06/17 12:00 09/06/17 12:00 09/06/17 12:00 09/06/17 12:00 09/06/17 12:00 Laboratory Results 09/06/17 04:20 09/05/17 04:45 09/05/17 09/06/17 09/07/17 05:59 05:59 05:59 Intake Total 1150 6440 400 Output Total 100 2800 300 Balance 1050 3640 100 PT 12.8 SEC (12.0-15.0) 09/04/17 20:45 INR 0.94 (0.83-1.16) 09/04/17 20:45 - Physical Exam Constitutional: appears nourished, obese, uncomfortable Eyes: PERRL, anicteric sclera Ears, Nose, Mouth, Throat: hearing normal, ears appear normal Cardiovascular: tachycardia, No JVD, No edema Respiratory: no respiratory distress, reduced air movement Gastrointestinal: normoactive bowel sounds, No tenderness, No ascites Skin: warm, normal color, No mottled Musculoskeletal: joint tenderness, pain with ROM, muscular tenderness, generalized weakness Neurologic: AAOx3 Psychiatric: not encephalopathic, thought process linear, encephalopathic, anxious ICD10 Worksheet Patient Problems: Problems Problem Status Onset Fracture of femoral neck, left Acute
[2017-09-06] MEDS: METHOCARBAMOL 750 MG TAB PO PRN (15:27)
--- NOTE | 2017-09-06 16:13 | ASMTCMCOM ---
CM Note CM Note Notes: OT rec 24/hr supervision vs. SNF, PT rec inpatient rehab. Pt hopes she qualifies for [facility] inpatient rehab especially because she has Meniere's disease which has caused her to have several serious injuries due to falls. Pt and provided [facility] SNF list in case pt does not qualify for inpatient rehab. CM to follow. D/c plan of care: SNF vs [facility] inpatient rehab Date Signed: 09/06/2017 04:12 PM Electronically Signed By:ENEDINA Helm
[2017-09-06] MEDS: ATORVASTATIN CALCIUM 10 MG TAB PO SCH (18:40)
[2017-09-06] MEDS: SENNOSIDES/DOCUSATE SODIUM TAB PO SCH (21:48)
[2017-09-06] MEDS: QUEtiapine FUMARATE 25 MG TAB PO SCH (21:49)
[2017-09-07] MEDS: HYDROXYUREA 500 MG CAP PO SCH ×3 (06:06→20:17)
[2017-09-07] MEDS ORDERED: NS 1,000 ML IV ONE (06:46)
[2017-09-07] MEDS: oxyCODONE IR 5 MG TAB PO PRN ×3 (09:59→20:21)
[2017-09-07] MEDS: LISINOPRIL 5 MG TAB PO SCH (10:00)
[2017-09-07] MEDS: RIVAROXABAN 10 MG TAB PO SCH (10:00)
[2017-09-07] MEDS: CHOLECALCIFEROL VIT D3 1,000 UNITS TAB PO SCH (10:01)
[2017-09-07] MEDS: SENNOSIDES/DOCUSATE SODIUM TAB PO SCH ×2 (10:01→20:21)
[2017-09-07] MEDS: PREGABALIN 75 MG CAP PO SCH ×2 (10:02→20:20)
[2017-09-07] MEDS: PANTOPRAZOLE SODIUM 40 MG TAB PO SCH (10:02)
[2017-09-07] MEDS: metFORMIN HCL 500 MG TAB PO SCH ×2 (10:02→20:15)
[2017-09-07] MEDS: DULoxetine 30 MG CAP PO SCH ×2 (10:03→20:15)
[2017-09-07] MEDS: TRIAMTERENE/HCTZ 75/50 1 EACH TAB PO SCH (10:03)
[2017-09-07] MEDS: VITAMIN B COMPLEX 1 EA CAP/TAB PO SCH (10:04)
[2017-09-07] MEDS: METHOCARBAMOL 750 MG TAB PO PRN (10:06)
[2017-09-07] MEDS: INSULIN LISPRO 100 UNIT/ML SC SCH ×3 (10:13→18:55)
[2017-09-07] MEDS: METOPROLOL TARTRATE 25 MG TAB PO SCH ×2 (11:20→20:17)
[2017-09-07] MEDS: ACETAMINOPHEN 325 MG TAB PO PRN (11:24)
[2017-09-07] MEDS: HYDROmorphONE/DILAUDID 2 MG TAB PO PRN ×2 (11:25→16:13)
--- NOTE | 2017-09-07 11:55 | HOSPPROG ---
Hospitalist Progress Note Assessment/Plan: 67 yo F w/ hx T2DM, HTN, osteoporosis, and multiple falls p/w L hip fracture after a fall. D/W Dr Choi Plan: # L hip fracture - POD #2 - Minimally-displaced and angulated intertrochanteric fracture left hip; - suffered from mechanical fall. This qualifies as pathologic fracture noting it occurred from standing height. - Continue bisphosphonate at discharge # T2DM - On metformin as outpatient; will manage BG here with SSI. - SSI lispro standard protocol - BG ACHS; D50 IV PRN for hypoglycemia #Leukocytosis -CXR, personally reviewed, bronchitis-ATX -unclear etiol -follow -BC pending -no abx at this time # HTN - Restarted home meds -beign held due to hypotension # Unsteady gait - history of Meniere's disease and she underwent a vestibulectomy for this many years ago. -She has suffered multiple falls resulting in serious injuries (shoulder, patella, hip). # Insomnia - Seroquel PRN # Elevated platelet count - On Hydroxyurea for this. # Tachy -unclear etiol -ekg sinus -h/h stable -start lopressor 12.5 bid # Fever -postop -low grade # Hypotension -postop -stable -consider bolus if needed # ABL anemia -stable -postop -no signs of bleeding -follow # Back pain -chronic with acute flare -monitor Diet - DM Code - Full Ppx - SCDs and xeralto Dispo - change to inpt status will require SNF Subjective: Up to bedside commode. Feels ok. Pain in right groin. No other issues. No specific complaints. Objective: Vital Signs Temp Pulse Resp BP Pulse Ox 36.9 C 112 H 18 109/51 L 99 09/07/17 08:00 09/07/17 08:00 09/07/17 08:00 09/07/17 08:00 09/07/17 08:00 Laboratory Results 09/07/17 05:26 09/07/17 05:26 09/06/17 09/07/17 09/08/17 05:59 05:59 05:59 Intake Total 6440 1800 Output Total 2800 1150 Balance 3640 650 PT 12.8 SEC (12.0-15.0) 09/04/17 20:45 INR 0.94 (0.83-1.16) 09/04/17 20:45 - Physical Exam Constitutional: appears nourished, obese, uncomfortable Eyes: PERRL, anicteric sclera, EOMI Ears, Nose, Mouth, Throat: moist mucous membranes, hearing normal, ears appear normal Cardiovascular: tachycardia, edema, No JVD Respiratory: no respiratory distress, no rales or rhonchi, reduced air movement Gastrointestinal: normoactive bowel sounds, No tenderness, No ascites Skin: warm, normal color, No mottled Musculoskeletal: joint tenderness, pain with ROM, muscular tenderness, generalized weakness Neurologic: AAOx3 Psychiatric: interacting appropriately, not anxious, not encephalopathic, thought process linear ICD10 Worksheet Patient Problems: Problems Problem Status Onset Chronic Disease Mgmt/Transitional Care Acute Fracture of femoral neck, left Acute
--- NOTE | 2017-09-07 13:39 | SOAPPROG ---
SOAP Progress Note Assessment/Plan: Assessment: Shantell is POD#2 s/p left femur short gamma nail. She is doing well with moderate pain controlled with Dilaudid. She has been up with physical therapy and has been toe touch weight bearing. PE: Dressing clean and dry NV intact LLE Calf is soft to compression and without pain Plan: Dressing changed and new DSD placed. We will have her continue with inpatient therapy with restriction of toe touch weight bearing. We will plan for discharge to a SNF or rehab facility depending on her ability to work with therapy. Continue Xarelto for 21 days post operatively 09/07/17 13:36 Objective: Vital Signs Temp Pulse Resp BP Pulse Ox 37.1 C 86 18 98/54 L 92 09/07/17 12:00 09/07/17 12:00 09/07/17 12:00 09/07/17 12:00 09/07/17 12:00 Laboratory Results 09/07/17 05:26 09/07/17 05:26 09/06/17 09/07/17 09/08/17 05:59 05:59 05:59 Intake Total 6440 1800 350 Output Total 2800 1150 300 Balance 3640 650 50 PT 12.8 SEC (12.0-15.0) 09/04/17 20:45 INR 0.94 (0.83-1.16) 09/04/17 20:45 ICD10 Worksheet Patient Problems: Problems Problem Status Onset Chronic Disease Mgmt/Transitional Care Acute Fracture of femoral neck, left Acute
--- NOTE | 2017-09-07 16:30 | ASMTCMCOM ---
CM Note CM Note Notes: Pt does not meet criteria for inpatient rehab. Pt accepted at both [facility] and [facility]. [facility] likely will not have bed availability if pt is ready for d/c tomorrow, [facility] will. CM will follow. D/c plan of care: [facility] or [facility] Date Signed: 09/07/2017 04:30 PM Electronically Signed By:ENEDINA Helm
[2017-09-07] MEDS: ATORVASTATIN CALCIUM 10 MG TAB PO SCH (20:15)
[2017-09-07] MEDS: QUEtiapine FUMARATE 25 MG TAB PO SCH (20:20)
[2017-09-08] MEDS: HYDROXYUREA 500 MG CAP PO SCH ×3 (06:20→20:59)
[2017-09-08] MEDS: oxyCODONE IR 5 MG TAB PO PRN ×2 (06:32→23:58)
--- NOTE | 2017-09-08 10:50 | HOSPPROG ---
Hospitalist Progress Note Assessment/Plan: 67 yo F w/ hx T2DM, HTN, osteoporosis, and multiple falls p/w L hip fracture after a fall. Today is my first encounter w the patient, chart reviewed. # L hip fracture, pathologic -POD #3 -Continue bisphosphonate at discharge #Pain due to the above -add scheduled Tylenol #Constipation -bowel protocol # T2DM - On metformin as outpatient; will manage BG here with SSI. - SSI lispro standard protocol #Leukocytosis -ongoing -blood cx clear -chest xray shows nothing acute, has some bronchitis, bibasilar atelectasis -recheck labs in a.m. to be sure trending down -had a fever post op but resolved # HTN - Restarted home meds -holding diuretic, she isn't taking in much orally # Unsteady gait - history of Mnire's disease and she underwent a vestibulectomy for this many years ago. -She has suffered multiple falls resulting in serious injuries (shoulder, patella, hip). -recommending she get a physical therapist to evaluate her home # Insomnia - Seroquel PRN # Elevated platelet count - On Hydroxyurea # Tachycardia -started on Lopressor, could be from anemia # Hypotension -postop # ABL anemia -recheck in a.m., may need transfusion # Back pain -chronic with acute flare -monitor #DVT prophylaxis: Xarelto x 21 days post op #plan: recheck labs in a.m., concerned she is confused, will dc the prn dose of Seroquel Subjective: Shantell said the pain has been significant in her left leg, also feels very constipated. Objective: Vital Signs Temp Pulse Resp BP Pulse Ox 37.1 C 87 18 123/57 H 100 09/08/17 07:52 09/08/17 07:52 09/08/17 07:52 09/08/17 07:52 09/08/17 07:52 Laboratory Results 09/08/17 05:05 09/07/17 05:26 09/07/17 09/08/17 09/09/17 05:59 05:59 05:59 Intake Total 1800 1800 Output Total 1150 3100 200 Balance 650 -1300 -200 PT 12.8 SEC (12.0-15.0) 09/04/17 20:45 INR 0.94 (0.83-1.16) 09/04/17 20:45 - Physical Exam Constitutional: appears nourished, obese, uncomfortable Eyes: PERRL Ears, Nose, Mouth, Throat: hearing normal Cardiovascular: regular rate and rhythym Respiratory: no respiratory distress, reduced air movement Gastrointestinal: normoactive bowel sounds Skin: warm, other (lef upper thigh area with swelling, dressing dry and intact) Musculoskeletal: generalized weakness Neurologic: AAOx3 Psychiatric: interacting appropriately, poor memory ICD10 Worksheet Patient Problems: Problems Problem Status Onset Chronic Disease Mgmt/Transitional Care Acute Fracture of femoral neck, left Acute
[2017-09-08] MEDS: SENNOSIDES/DOCUSATE SODIUM TAB PO SCH ×2 (11:28→20:58)
[2017-09-08] MEDS: PANTOPRAZOLE SODIUM 40 MG TAB PO SCH (11:32)
[2017-09-08] MEDS: metFORMIN HCL 500 MG TAB PO SCH ×2 (11:33→18:21)
[2017-09-08] MEDS: PREGABALIN 75 MG CAP PO SCH ×2 (11:34→20:59)
[2017-09-08] MEDS: VITAMIN B COMPLEX 1 EA CAP/TAB PO SCH (11:36)
[2017-09-08] MEDS: CHOLECALCIFEROL VIT D3 1,000 UNITS TAB PO SCH (11:38)
[2017-09-08] MEDS: LISINOPRIL 5 MG TAB PO SCH (11:38)
[2017-09-08] MEDS: RIVAROXABAN 10 MG TAB PO SCH (11:38)
[2017-09-08] MEDS: DULoxetine 30 MG CAP PO SCH ×2 (11:39→20:58)
[2017-09-08] MEDS: ACETAMINOPHEN 500 MG TAB PO SCH ×3 (11:53→22:18)
[2017-09-08] MEDS: INSULIN LISPRO 100 UNIT/ML SC SCH ×3 (11:53→18:39)
[2017-09-08] MEDS: METOPROLOL TARTRATE 25 MG TAB PO SCH ×2 (11:55→20:59)
[2017-09-08] MEDS: TRIAMTERENE/HCTZ 75/50 1 EACH TAB PO SCH (11:56)
[2017-09-08] MEDS: METHOCARBAMOL 750 MG TAB PO PRN (16:24)
[2017-09-08] MEDS: ATORVASTATIN CALCIUM 10 MG TAB PO SCH (18:21)
[2017-09-08] MEDS: QUEtiapine FUMARATE 25 MG TAB PO SCH (20:58)
[2017-09-08] MEDS: POLYETHYLENE GLYCOL 3350 17 GM PKT PO SCH (21:05)
[2017-09-09] MEDS: oxyCODONE IR 5 MG TAB PO PRN ×4 (04:59→20:04)
[2017-09-09 06:01] LABS: PLATELET COUNT 498 10^3/uL (150-400)
[2017-09-09] MEDS: HYDROXYUREA 500 MG CAP PO SCH ×2 (06:34→20:04)
[2017-09-09] MEDS: PANTOPRAZOLE SODIUM 40 MG TAB PO SCH (09:47)
[2017-09-09] MEDS: DULoxetine 30 MG CAP PO SCH ×2 (09:47→20:02)
[2017-09-09] MEDS: RIVAROXABAN 10 MG TAB PO SCH (09:47)
[2017-09-09] MEDS: CHOLECALCIFEROL VIT D3 1,000 UNITS TAB PO SCH (09:47)
[2017-09-09] MEDS: PREGABALIN 75 MG CAP PO SCH ×2 (09:47→20:02)
[2017-09-09] MEDS: VITAMIN B COMPLEX 1 EA CAP/TAB PO SCH (09:47)
[2017-09-09] MEDS: metFORMIN HCL 500 MG TAB PO SCH ×2 (09:47→18:30)
[2017-09-09] MEDS: INSULIN LISPRO 100 UNIT/ML SC SCH ×3 (09:54→19:01)
[2017-09-09] MEDS: POLYETHYLENE GLYCOL 3350 17 GM PKT PO SCH ×2 (09:55→20:05)
[2017-09-09] MEDS: SENNOSIDES/DOCUSATE SODIUM TAB PO SCH ×2 (09:56→20:04)
[2017-09-09] MEDS: LISINOPRIL 5 MG TAB PO SCH (10:43)
--- NOTE | 2017-09-09 11:00 | HOSPPROG ---
Hospitalist Progress Note Assessment/Plan: 67 yo F w/ hx T2DM, HTN, osteoporosis, and multiple falls p/w L hip fracture after a fall. # L hip fracture, pathologic -POD #4 -Continue bisphosphonate at discharge #Pain due to the above -add scheduled Tylenol #Constipation-resolved -bowel protocol # T2DM - On metformin as outpatient; will manage BG here with SSI. - SSI lispro standard protocol #Leukocytosis -better today -blood cx clear -chest xray shows nothing acute, has some bronchitis, bibasilar atelectasis -had a fever post op but resolved # HTN - Restarted home meds -holding diuretic, she isn't taking in much orally # Unsteady gait - history of Mnire's disease and she underwent a vestibulectomy for this many years ago. -She has suffered multiple falls resulting in serious injuries (shoulder, patella, hip). -recommending she get a physical therapist to evaluate her home for safety # Insomnia - Seroquel PRN # Elevated platelet count - On Hydroxyurea # Tachycardia -dc lopressor, suspect it's from her anemia # Hypotension -postop # ABL anemia -will transfuse, she is symptomatic, feeling exhausted and bp is low # Back pain -chronic #DVT prophylaxis: Xarelto x 21 days post op #plan: give a unit of prbc's, recheck labs in a.m., and if stable; will dc her to rehab. Subjective: Shantell is tired but feels clearer minded today. Objective: Vital Signs Temp Pulse Resp BP Pulse Ox 36.8 C 84 16 95/56 L 94 09/09/17 08:00 09/09/17 08:00 09/09/17 08:00 09/09/17 08:00 09/09/17 08:00 Laboratory Results 09/09/17 04:44 09/07/17 05:26 09/08/17 09/09/17 09/10/17 05:59 05:59 05:59 Intake Total 1800 1250 Output Total 3100 1575 400 Balance -1300 -325 -400 PT 12.8 SEC (12.0-15.0) 09/04/17 20:45 INR 0.94 (0.83-1.16) 09/04/17 20:45 - Physical Exam Constitutional: appears nourished, not in pain Eyes: PERRL Ears, Nose, Mouth, Throat: hearing normal Cardiovascular: regular rate and rhythym Respiratory: no respiratory distress Gastrointestinal: normoactive bowel sounds Skin: warm, other (swelling in left hip area), No normal color (pale) Musculoskeletal: generalized weakness Neurologic: AAOx3 Psychiatric: interacting appropriately ICD10 Worksheet Patient Problems: Problems Problem Status Onset Chronic Disease Mgmt/Transitional Care Acute Fracture of femoral neck, left Acute
[2017-09-09] MEDS: METOPROLOL TARTRATE 25 MG TAB PO SCH (11:12)
[2017-09-09] MEDS ORDERED: ACETAMINOPHEN 325 MG TAB PO ONE (11:36)
[2017-09-09] MEDS: ACETAMINOPHEN 500 MG TAB PO SCH ×2 (11:56→18:30)
--- NOTE | 2017-09-09 13:20 | SOAPPROG ---
SOAP Progress Note Assessment/Plan: Assessment: Shantell is POD#4 s/p left femur short gamma nail. She is doing well with moderate pain controlled with Dilaudid. She has been up with physical therapy and has been toe touch weight bearing. She will be transfused today due to symptomatic blood loss anemia. PE: Dressing clean and dry NV intact LLE Calf is soft to compression and without pain Plan: We will have her continue with inpatient therapy with restriction of toe touch weight bearing. Also, plan for physical therapy to work on left knee ROM to patient's tolerance. We will plan for discharge to a SNF or rehab facility depending on her ability to work with therapy. Continue Xarelto for 21 days post operatively 09/07/17 13:36 09/09/17 13:18 Objective: Vital Signs Temp Pulse Resp BP Pulse Ox 36.8 C 84 16 95/56 L 94 09/09/17 08:00 09/09/17 08:00 09/09/17 08:00 09/09/17 08:00 09/09/17 08:00 Laboratory Results 09/09/17 04:44 09/07/17 05:26 09/08/17 09/09/17 09/10/17 05:59 05:59 05:59 Intake Total 1800 1250 Output Total 3100 1575 400 Balance -1300 -325 -400 PT 12.8 SEC (12.0-15.0) 09/04/17 20:45 INR 0.94 (0.83-1.16) 09/04/17 20:45 ICD10 Worksheet Patient Problems: Problems Problem Status Onset Chronic Disease Mgmt/Transitional Care Acute Fracture of femoral neck, left Acute
[2017-09-09] MEDS: ATORVASTATIN CALCIUM 10 MG TAB PO SCH (18:30)
[2017-09-09] MEDS: QUEtiapine FUMARATE 25 MG TAB PO SCH (20:02)
[2017-09-10] MEDS: oxyCODONE IR 5 MG TAB PO PRN ×4 (02:40→14:38)
[2017-09-10] MEDS: ACETAMINOPHEN 500 MG TAB PO SCH ×2 (02:56→08:55)
[2017-09-10] MEDS: HYDROXYUREA 500 MG CAP PO SCH ×2 (06:10→11:28)
[2017-09-10] MEDS: INSULIN LISPRO 100 UNIT/ML SC SCH ×2 (08:40→11:28)
[2017-09-10] MEDS: PREGABALIN 75 MG CAP PO SCH (08:53)
[2017-09-10] MEDS: DULoxetine 30 MG CAP PO SCH (08:53)
[2017-09-10] MEDS: VITAMIN B COMPLEX 1 EA CAP/TAB PO SCH (08:53)
[2017-09-10] MEDS: PANTOPRAZOLE SODIUM 40 MG TAB PO SCH (08:53)
[2017-09-10] MEDS: metFORMIN HCL 500 MG TAB PO SCH (08:54)
[2017-09-10] MEDS: CHOLECALCIFEROL VIT D3 1,000 UNITS TAB PO SCH (08:54)
[2017-09-10] MEDS: SENNOSIDES/DOCUSATE SODIUM TAB PO SCH (08:54)
[2017-09-10] MEDS: RIVAROXABAN 10 MG TAB PO SCH (08:56)
[2017-09-10] MEDS: POLYETHYLENE GLYCOL 3350 17 GM PKT PO SCH (08:56)
[2017-09-10] MEDS: LISINOPRIL 5 MG TAB PO SCH (09:00)
[2017-09-10 11:30] VITALS: BP 120/69
--- NOTE | 2017-09-10 11:44 | HOSPPROG ---
Hospitalist Progress Note Assessment/Plan: 67 yo F w/ hx T2DM, HTN, osteoporosis, and multiple falls p/w L hip fracture after a fall. # L hip fracture, pathologic -POD #5 -Continue bisphosphonate at discharge #Pain due to the above -add scheduled Tylenol #Constipation-resolved -bowel protocol # T2DM - On metformin as outpatient; will manage BG here with SSI. - SSI lispro standard protocol #Leukocytosis -improved during her stay -blood cx clear -chest xray shows nothing acute, has some bronchitis, bibasilar atelectasis -had a fever post op but resolved # HTN - Restarted home meds # Unsteady gait - history of Mnire's disease and she underwent a vestibulectomy for this many years ago. -She has suffered multiple falls resulting in serious injuries (shoulder, patella, hip). -recommending she get a physical therapist to evaluate her home for safety # Insomnia - Seroquel PRN # Elevated platelet count (increased after transfusion) - On Hydroxyurea # Tachycardia - suspect it's from her anemia # Hypotension -resolved # ABL anemia -improved w transfusion # Back pain -chronic #DVT prophylaxis: Xarelto x 21 days post op #plan: had some nausea this morning, will recheck on her and dc if feeling better Subjective: Brannon is having some nausea this morning. Objective: Vital Signs Temp Pulse Resp BP Pulse Ox 37.3 C 92 16 120/69 96 09/10/17 11:29 09/10/17 11:29 09/10/17 11:29 09/10/17 11:29 09/10/17 11:29 Laboratory Results 09/10/17 04:41 09/07/17 05:26 09/09/17 09/10/17 09/11/17 05:59 05:59 05:59 Intake Total 1250 400 Output Total 1575 401 600 Balance -325 -1 -600 PT 12.8 SEC (12.0-15.0) 09/04/17 20:45 INR 0.94 (0.83-1.16) 09/04/17 20:45 - Physical Exam Constitutional: not in pain, obese Eyes: PERRL Ears, Nose, Mouth, Throat: hearing normal Respiratory: no respiratory distress Skin: other (left hip w swelling) Musculoskeletal: generalized weakness Neurologic: AAOx3 Psychiatric: interacting appropriately ICD10 Worksheet Patient Problems: Problems Problem Status Onset Chronic Disease Mgmt/Transitional Care Acute Fracture of femoral neck, left Acute
--- NOTE | 2017-09-10 12:32 | PDIAF ---
- Diagnosis Diagnosis: left hip fracture, anemia, DM 2 Code Status: Full Code - Medication Management Discharge Medications: Medications to Continue on Transfer Alendronate Sodium [Fosamax 70 MG (*)] 70 mg PO SA@0700 09/04/17 [Last Taken Unknown] Cholecalciferol Vit D3 [Vitamin D3 (*)] 1,000 units PO DAILY 09/04/17 [Last Taken Unknown] DULoxetine [Cymbalta 30 MG (*)] 30 mg PO BID 09/04/17 [Last Taken 09/04/17] Hydroxyurea [Hydrea 500 mg (*)] 1,000 mg PO TUFR@09/04/17 [Last Taken Unknown ] Hydroxyurea [Hydrea 500 mg (*)] 1,500 mg PO SUMOWETHSA@09/04/17 [Last Taken Unknown] Lisinopril [Zestril 5 mg (*)] 5 mg PO DAILY 09/04/17 [Last Taken Unknown] Metformin HCl [Metformin 1000 mg] 1,000 mg PO BIDMEAL 09/04/17 [Last Taken Unknown] Pantoprazole Sodium [Protonix 40mg (*)] 40 mg PO DAILY 09/04/17 [Last Taken Unknown] Pregabalin [Lyrica 150mg (*)] 150 mg PO BID 09/04/17 [Last Taken Unknown] Quetiapine Fumarate 25 mg PO HS 09/04/17 [Last Taken 09/03/17] Simvastatin [Zocor] 20 mg PO 1800 09/04/17 [Last Taken Unknown] Triamterene/Hctz 75/50 [Maxzide 75-50 mg Tab (*)] 0.5 tab PO DAILY 09/04/17 [ Last Taken Unknown] Vitamin B Complex [Vitamin B Complex (OTC)] 1 each PO DAILY 09/04/17 [Last Taken Unknown] Acetaminophen [Tylenol ES 500 mg (*)] 1,000 mg PO TID tab 09/10/17 [Last Taken Unknown] Methocarbamol [Robaxin 750 mg (*)] 750 mg PO TID PRN tab 09/10/17 [Last Taken Unknown] Ondansetron Odt [Zofran Odt 4 mg (*)] 4 mg PO Q4HRS PRN tab 09/10/17 [Last Taken Unknown] Polyethylene Glycol 3350 [Miralax 17 gm (*)] 17 gm PO BID pkt 09/10/17 [Last Taken Unknown] Rivaroxaban [Xarelto 10mg (*)] 10 mg PO DAILY tab 09/10/17 [Last Taken Unknown] Sennosides/Docusate Sodium [Senokot-S] 1 - 2 tab PO BID tab 09/10/17 [Last Taken Unknown] oxyCODONE IR [Oxycodone Ir (*)] 5 - 10 mg PO Q3HRS PRN tab 09/10/17 [Last Taken Unknown] Discharge Medications: Refer to the Discharge Home Medication list for PRN reason. - Orders Services needed: Physical Therapy, Occupational Therapy Diet Recommendation: ADA 2200 consistent carb Diet Texture: Regular Texture Diet Additional Instructions: toe touch weight bearing to left lower extremity f/u with Dr Ebony Olivia and with Dr Azul Flood continue Xarelto until 09/[address] Rodas - Labs/Radiology HCT/HGB Date: 09/14/17 Other Lab Name, Date and Time: platelet count on 09/14/17 - Follow Up Care Current Providers and Referrals: Patient,NotPresent [Unknown] - As per Instructions Brian Rodas MD [Medical Doctor] -
--- NOTE | 2017-09-10 14:12 | ASMTCMCOM ---
CM Note CM Note Notes: Pt medically stable for d/c to [facility]. [facility] with [facility] scheduled [facility]c transport for 15:30. RN June to call report. Orders sent in [employer]. Date Signed: 09/10/2017 02:11 PM Electronically Signed By:ENEDINA Helm
--- NOTE | 2017-09-10 16:56 | GDS ---
[f rep st] DISCHARGE SUMMARY DISCHARGE DIAGNOSES: 1. Left hip fracture, pathologic. 2. Pain due to this. 3. Constipation. 4. Type 2 diabetes. 5. Leukocytosis. 6. Hypertension. 7. Unsteady gait. 8. Insomnia. 9. Elevated platelet count. 10. Tachycardia. 11. Hypotension. 12. Acute blood loss anemia. 13. Chronic back pain. CONSULTATION: Dr. Brian Rodas. HISTORY: Briefly, the patient is a 67-year-old woman with a history of osteoporosis, multiple falls and fractures, who presented with a fall. She tripped on her new recliner and fell down. After this fall, she experienced acute left hip pain. She had a hip x-ray that revealed a left hip fracture. She was seen and evaluated by Dr. Rodas, and on September 05, she had fixation of the left hip. Her stay was complicated with hypotension and tachycardia. Her symptoms improved after receiving a unit of packed red blood cells. The plan is for her to go to rehabilitation today for strengthening. She will further follow up with Dr. Rodas and her primary care providers in the outpatient setting. HOSPITAL COURSE: 1. Left hip fracture that is pathologic. She will continue her by bisphosphonate at discharge. She is to be toe-touch weightbearing. 2. Pain overall is well managed. 3. Constipation, resolved. 4. Type 2 diabetes. Resumed her metformin. 5. Leukocytosis, improved. Blood cultures were checked, which were negative. Her chest x-ray showed nothing acute She had a fever postop, but this resolved. 6. Hypertension. She has had episodes of hypotension. Her home medications have been restarted. 7. Unsteady gait. She has a history of Meniere disease and underwent a vestibulectomy many years ago. She has suffered from multiple falls resulting in serious injuries. I have recommended to get a physical therapist to evaluate her home for safety. 8. Insomnia, on Seroquel p.r.n. 9. Elevated platelet count. This increased after the transfusion. Will have her platelet count checked again at the intermediate facility. Will have her follow up with Dr. Ebony Olivia in the outpatient setting. 10. Tachycardia, resolved. 11. Hypotension, resolved. 12. Acute blood loss anemia. Was given a unit of packed red blood cells. 13. Back pain. This is chronic. DISCHARGE CONDITION: Stable. Blood pressure is 120/69. Respiratory rate is 16. Pulse is 92. Temperature 37.3 Celsius. O2 sats on room air are 96%. DISCHARGE MEDICATIONS: Please see the EMR. DISCHARGE INSTRUCTIONS: 1. Follow up with Dr. Rodas. 2. To continue the Xarelto until 09/26. 3. Follow up with Dr. Ebony Olivia in regard to her elevated platelet count. Greater than 30 minutes discharging and coordinating the patient's care. /[id number]/MODL MTDD
[2017-09-10] MEDS ORDERED: HYDROXYUREA 500 MG CAP PO SCH (21:00)
[2017-09-11] MEDS ORDERED: ALENDRONATE SODIUM 70 MG TAB PO SCH (07:00)
[2017-09-11] MEDS ORDERED: HYDROXYUREA 500 MG CAP PO SCH (21:00)
== END 2017-09-10 16:05 | DRG 481 ==
LOC: EDUNIT# → OBSVTOIN 21:03 → F3N 22:45
PROVIDERS: ADMIT Internal Medicine; ATTEND Family Medicine
PROC: 0QS706Z Reposition Left Upper Femur with Intramedullary Internal Fixation Device, Open Approach (ICD-10-PCS; principal; 2017-09-05 12:00)
PROC: 30233N1 Transfusion of Nonautologous Red Blood Cells into Peripheral Vein, Percutaneous Approach (ICD-10-PCS; 2017-09-09)
DX: M80.052A Age-related osteoporosis with current pathological fracture, left femur, initial encounter for fracture (principal); D62 Acute posthemorrhagic anemia; I95.9 Hypotension, unspecified; K59.00 Constipation, unspecified; E11.9 Type 2 diabetes mellitus without complications; D72.829 Elevated white blood cell count, unspecified; I10 Essential (primary) hypertension; R26.81 Unsteadiness on feet; G47.00 Insomnia, unspecified; M54.9 Dorsalgia, unspecified; F32.9 Major depressive disorder, single episode, unspecified; K21.9 Gastro-esophageal reflux disease without esophagitis; H81.90 Unspecified disorder of vestibular function, unspecified ear; Z91.81 History of falling; Z79.84 Long term (current) use of oral hypoglycemic drugs
CPT/HCPCS: 96374; 97116-GP; 97162-GP; 97165-GO; 97168-GO; 97530-GO; 97530-GP; 97535-GO; C1713; G8978-GP-CL; G8979-GP-CK; G8987-GO-CL; G8988-GO-CJ; J1100; J1170; J1815; J2250; J2370; J2405; J2550; J2704; J3010; P9016

== ENCOUNTER → 2018-01-08 | Outpatient (CLI) | payer OTHER, MEDICARE | LOC: FIMAGING 08:07 | PROVIDERS: ATTEND Psychiatry & Neurology Neurology | DX: R26.9 Unspecified abnormalities of gait and mobility (principal) ==

== ENCOUNTER 2018-05-26 05:47 | Day surgery (SDC) | payer OTHER, MEDICARE ==
[2018-05-26] MEDS ORDERED: ceFAZolin 2 GM/DEXTROSE 100 ML IV ONE (06:09)
[2018-05-26] MEDS ORDERED: LR 1,000 ML IV ONE (06:10)
[2018-05-26] MEDS ORDERED: BUPIVACAINE/EPI 0.5% 30 ML SDV ONE (06:55)
--- NOTE | 2018-05-26 07:04 | PDHPUP ---
History & Physical Update H&P update statement: This history and physical update is based on an assessment of the patient which was completed after admission or registration (within 24 hours), but prior to the surgery/procedure. H&P update: H&P reviewed & patient examined, no change in patient's condition since H&P completed
[2018-05-26] MEDS ORDERED: MIDAZOLAM 2 MG/2 ML VIAL IVP ONE (07:05)
--- NOTE | 2018-05-26 07:06 | PDANEPAE ---
ANE Past Medical History - Cardiovascular History Hx Hypertension: Yes Hx Arrhythmias: No Hx Chest Pain: No Hx Coronary Artery / Peripheral Vascular Disease: Yes Hx CHF / Valvular Disease: No Hx Palpitations: No Cardiovascular History Comment: calcium score mild per pt - Pulmonary History Hx COPD: No Hx Asthma/Reactive Airway Disease: Yes Hx Recent Upper Respiratory Infection: No Hx Oxygen in Use at Home: No Hx Sleep Apnea: No Sleep Apnea Screening Result - Last Documented: Negative Pulmonary History Comment: mild asthma. 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 - Cancer History Hx Cancer: Yes Cancer History Comment: BASAL CELL SKIN CA - Congenital Disorder History Hx Congenital Disorders: No - GI History Hx Gastrointestinal Disorders: Yes Gastrointestinal History Comment: ACID REFLUX - Other Health History Other Health History: BRUISES EASILY - Chronic Pain History Chronic Pain: Yes (LOWER BACK PAIN) - Surgical History Prior Surgeries: left knee and hip ANE Review of Systems Review of Systems: - Exercise capacity METS (RN): 4 METS ANE Patient History - Allergies Allergies/Adverse Reactions: droperidol Allergy (Intermediate, Verified 05/16/18 16:11) hallucinate tetracycline Allergy (Intermediate, Verified 05/16/18 16:11) Hives seafood Allergy (Uncoded 05/16/18 16:11) Other-Enter Comments - Home Medications Home Medications: Cholecalciferol Vit D3 [Vitamin D3 (*)] 09/04/17 [Last Taken 1 Week Ago ~] DULoxetine [Cymbalta 30 MG (*)] 09/04/17 [Last Taken 05/26/18] Hydroxyurea [Hydrea 500 mg (*)] 09/04/17 [Last Taken 05/25/18] Lisinopril [Zestril 5 mg (*)] 09/04/17 [Last Taken 05/25/18] Metformin HCl [Metformin 1000 mg] 09/04/17 [Last Taken 05/25/18] Pantoprazole Sodium [Protonix 40mg (*)] 09/04/17 [Last Taken 05/26/18] Pregabalin [Lyrica 150mg (*)] 09/04/17 [Last Taken 05/26/18] Quetiapine Fumarate 09/04/17 [Last Taken 2 Months Ago ~03/28/18] Simvastatin [Zocor] 09/04/17 [Last Taken 05/26/18] Vitamin B Complex [Vitamin B Complex (OTC)] 09/04/17 [Last Taken 1 Week Ago ~] Acetaminophen [Tylenol ES 500 mg (*)] 05/16/18 [Last Taken 2 Weeks Ago ~] Polyethylene Glycol 3350 [Miralax 17 gm (*)] 05/16/18 [Last Taken 2 Months Ago ~03/28/18] - NPO status NPO Since - Liquids (Date): 05/25/18 NPO Since - Liquids (Time): 20:30 NPO Since - Solids (Date): 05/25/18 NPO Since - Solids (Time): 20:30 - Smoking Hx Smoking Status: Never smoked - Family Anes Hx Family Hx Anesthesia Complications: none ANE Labs/Vital Signs - Vital Signs Blood Pressure: 135/79 Heart Rate: 70 Respiratory Rate: 16 O2 Sat (%): 92 Height: 162.56 cm Weight: 81.647 kg ANE Physical Exam - Airway Neck exam: decreased ROM Mallampati Score: Class 1 Mouth exam: normal dental/mouth exam - Pulmonary Pulmonary: no respiratory distress - Cardiovascular Cardiovascular: regular rate and rhythym - ASA Status ASA Status: II ANE Anesthesia Plan Anesthesia Plan: GA w LMA
[2018-05-26] MEDS ORDERED: LIDOCAINE 2% 2 ML INJ ONE (07:20)
[2018-05-26] MEDS ORDERED: fentaNYL 100 MCG/2 ML INJ ONE (07:20)
[2018-05-26] MEDS ORDERED: PROPOFOL 200 MG/20 ML VIAL ONE ×2 (07:21→07:37)
[2018-05-26] MEDS ORDERED: HYDROCODONE/APAP 5/325 TAB PO PRN ×2 (09:11→09:27)
--- NOTE | 2018-05-26 09:11 | POSTOPPROG ---
Post Op Note Date of Operation: 05/26/18 Surgeon: Nivia Camara Well Shooter: Vianey Hahn PA-C Anesthesiologist: Dr. Alexy Elmore Pre-op Diagnosis: left knee pain, painful retained hardware Post-op Diagnosis: left knee pain, meniscal tear, retained hardware Indication: left knee pain Procedure: left knee arthroscopy, partial meniscectomy, hardware removal Inf/Abcess present in the surg proc area at time of surgery?: No EBL: Minimal Complications: none
[2018-05-26] MEDS ORDERED: LABETALOL HCL 5 MG/ML 20 ML MDV IVP PRN (09:27)
[2018-05-26] MEDS ORDERED: ONDANSETRON 4 MG/2 ML VIAL IVP PRN (09:27)
[2018-05-26] MEDS ORDERED: NALOXONE HCL 0.4 MG/ML INJ IVP PRN (09:27)
[2018-05-26] MEDS ORDERED: fentaNYL 100 MCG/2 ML INJ IVP PRN (09:27)
[2018-05-26 10:18] VITALS: BP 142/71
--- NOTE | 2018-05-26 15:34 | GOP ---
[f rep st] OPERATIVE REPORT DATE OF OPERATION: 05/26/2018 SURGEON: Nivia Camara MD [facility] ATTENDANT: Vianey Hahn, MONIK. ANESTHESIA: General. PREOPERATIVE DIAGNOSIS: Painful retained hardware with probable lateral meniscus tear, left knee. POSTOPERATIVE DIAGNOSIS: Painful retained hardware with probable lateral meniscus tear, left knee, w ith chondral lesion lateral femoral condyle, left knee. PROCEDURE PERFORMED: Arthroscopy with partial lateral meniscectomy with debridement of the lateral c ompartment and removal of painful retained hardware, left knee. FINDINGS: Diagnostic arthroscopy of the left knee was performed with the following findings: The pa tient had some areas of grade 3 chondromalacia of the patella. This was localized mostly to the medi al facet. The trochlear groove was intact. The lateral facet of the patella was normal. The medial compartment was entered and was normal in appearance. The medial articular cartilage and medial men iscus were normal. The ACL was visualized in the intercondylar notch and noted to be intact. The la teral compartment was then entered, and the patient was noted to have a tear in the lateral meniscus. This involved the middle 3rd of the meniscus. There was also some degenerative change in the later al compartment with loose flaps of articular cartilage on both the lateral femoral and tibial condyle s. Debridement of the loose flaps was performed and then the meniscus was trimmed with the baskets a nd the shaver. It was trimmed back to a stable rim. Once this was completed, the instrumentation wa s removed from the knee, and the tourniquet was inflated. The 2 retained 4.0 cannulated screws in th e patella were located using the C-arm. These were removed along with the FiberWire and knots which were palpable along the patella. ESTIMATED BLOOD LOSS: Minimal. DESCRIPTION OF PROCEDURE: The patient was taken to the operating room and placed in a supine positio n on the operating table. Following induction of adequate general inhalation anesthesia, the knee an d leg were prepped and draped in the usual sterile manner. The patient received 2 g of IV Ancef. Th e arthroscope was introduced through a lateral portal and the instrumentation through a medial portal . A diagnostic arthroscopy was performed with the above-noted findings. Our attention was turned 1s t to the lateral compartment where the pathology was located. The lateral meniscus was trimmed with the baskets and a shaver. A chondroplasty of the lateral femoral and tibial condyle was then perform ed. Once this was completed, the instruments were removed from the knee, and the portals were closed using 4-0 nylon in interrupted fashion. The leg was elevated and exsanguinated and the tourniquet i nflated to 300 mmHg. The upper half of the previous midline incision was opened. The incision was c arried down through the subcutaneous tissue to the quad tendon and patella. Using the C-arm for loca lization, the heads of the 4.0 cannulated screws were located, and the screws were backed out. The r etained suture was also removed. The wound was irrigated out, and then the small defects in the quad tendon were repaired using 0 Vicryl followed by 2-0 Vicryl in the subcutaneous tissue and markos in the skin. Sterile dressings were applied. The knee was injected with 20 cc of 0.5% Marcaine with e pinephrine, and the incision was injected with 15 cc of 0.5% Marcaine with epinephrine. The patient tolerated the procedure well, and there were no complications. Estimated blood loss minimal. Final sponge and needle counts were correct. The patient was transported to the recovery room in good cond ition. /[id number]/MODL
== END 2018-05-26 11:25 | disposition home or self-care (01) ==
LOC: FSGY 05:47
PROVIDERS: ATTEND Orthopaedic Surgery
DX: T84.84XA Pain due to internal orthopedic prosthetic devices, implants and grafts, initial encounter (principal); M23.8X2 Other internal derangements of left knee; M94.8X6 Other specified disorders of cartilage, lower leg; I10 Essential (primary) hypertension; I25.10 Atherosclerotic heart disease of native coronary artery without angina pectoris; J45.909 Unspecified asthma, uncomplicated; E11.9 Type 2 diabetes mellitus without complications; H81.09 Meniere's disease, unspecified ear
CPT/HCPCS: C1713; J2250; J2704; J3010

== ENCOUNTER → 2018-08-18 | Outpatient (CLI) | payer OTHER, MEDICARE | LOC: FIMAGING 11:17 ==